=== PATIENT | female | born 1965 | race African-American/Black ===

== ENCOUNTER 2016-05-01 17:49 | Observation (INO) | payer OTHER ==
[~2016-05-01] VITALS: Ht 175.3 cm; Wt 90.7 kg
--- NOTE | ~2016-05-01 | H ---
[facility] [place] [address] HISTORY AND PHYSICAL Name: DEBRA REED Room #: 538-P [facility] M.RNura#: [id number] Admission: 05/01/16 Attend Phys: Jimenez Mccullough MD Discharge: Date of : 65 Report #: [id number] THIS REPORT FOR: //name// CC: Jimenez Stevenson ATTENDING PHYSICIAN: Jimenez Mccullough MD PRIMARY CARE PHYSICIAN: Mamadou Stevenson MD CHIEF COMPLAINT: Acute left leg and left buttock pain. HISTORY OF PRESENT ILLNESS: The patient is an 51-year-old female who has had problems with her lower back with left leg radiculopathy and neuropathy previously. She was here in November with back pain and evaluated with an MRI which did show some disc extrusion of L5-S1. She received epidural steroid shot at that time by pain management and she said she did well for a while. Normally she continues to have some left leg numbness and tingling. At some point since she was here, she got diagnosed with ankylosing spondylitis and she was evaluated by rheumatology, Dr. Lewis in the [place] and started on Humira last week. She just had her first dose. Since she had a jewelry box fall on her left ankle area tonight and it made her jump and since then she has been having increasing left buttock or sciatica pain and she continued to take her ibuprofen and tramadol at home but it did not help. She got to the point where she could not even ambulate because of the pain. She is having difficulty describing as the pain starts in her ankle where the jewelry box fell and radiate up her leg or starts in her left buttock area and radiates down her leg but she says the entire back of her leg is having shooting pain. PAST MEDICAL HISTORY: Chronic back pain, hypertension, asthma, depression, recent diagnosis of ankylosing spondylitis. PAST SURGICAL HISTORY: x 2, deviated septal repair, partial hysterectomy and sinus surgery. ALLERGIES: None. HOME MEDICATIONS: Hydrochlorothiazide 12.5 mg daily, ibuprofen 800 mg q.8 hours, tramadol 50 mg q.6 p.r.n., cyclobenzaprine 10 mg t.i.d., Zyrtec 10 mg daily, vitamin D 50,000 units weekly, vitamin B12 500 mg daily, 2 mg weekly. SOCIAL HISTORY: The patient denies any tobacco use. She drinks alcohol occasionally. She lives with her spouse and kids. She works in [employer]. FAMILY HISTORY: Her sister has MS and her [place] multiple [place] [address] HISTORY AND PHYSICAL Name: DORINDA BAEZADEBRA Room #: 538-P [facility] M.R.#: [id number] Admission: 05/01/16 Attend Phys: Jimenez Mccullough MD Discharge: Date of : 65 Report #: [id number] told she was in remission. REVIEW OF SYSTEMS: Twelve point review of systems was reviewed with the patient, otherwise negative unless stated in the HPI. PHYSICAL EXAMINATION: GENERAL: The patient is an alert female in no acute distress. VITAL SIGNS: Temperature is 36.6, heart rate 106, respirations 20, blood pressure is 142/82, oxygen 99% on room air. HEENT: PERRLA. Sclerae are nonicteric. Oral mucosa is pink and moist. NECK: Supple, no JVD noted. CARDIOVASCULAR: Normal S1, S2. No murmurs, rubs or gallops. RESPIRATORY: Breath sounds are clear bilaterally. No wheezing or rhonchi. Breathing is nonlabored. ABDOMEN: Soft, nontender, nondistended, positive bowel sounds. VASCULAR: No edema noted. Pedal pulses are 2+. NEUROLOGIC: The patient is alert and oriented x 3. Speech is clear. She is moving all extremities equally. No focal weakness noted. MUSCULOSKELETAL: She is able to bend her left leg at a 90 degree angle. She has difficulty performing straight leg raise on the left when she . She does have slight decreased sensation in the left leg. She does have point tenderness in her left-sided SI joint with some mild point tenderness in her lumbar area. LABS AND DIAGNOSTICS: Labs have not yet been drawn. ASSESSMENT AND PLAN: 1. Sciatica. The patient was admitted because she cannot ambulate. We will continue with scheduled Toradol and check an MRI of the lumbar spine in the morning. We will have physical therapy evaluate. She has never seen a surgeon regarding her back problems. If her MRI is abnormal, we may consult them. 2. Ankylosing spondylitis. 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 She may have involvement of her sacroiliac joint causing her current pain. Continue with antiinflammatory medications. We will also check her ESR and CRP. 3. Hypertension. Blood pressure is stable, continue home meds. 4. Deep venous thrombosis prophylaxis. Place sequential compression devices. We will continue to follow the patient closely throughout the hospitalization and make changes based on clinical status. <ELECTRONICALLY SIGNED> By: CHANDA Moreno 05/04/16 0658 [id number] CHANDA Moreno /nt
--- NOTE | ~2016-05-01 | HPC ---
[facility] [address] PAIN MANAGEMENT CONSULTATION Name: DEBRA REED Room #: 538-P [facility].Nura#: [id number] Admission: 05/01/16 Attend Phys: Jimenez Mccullough MD Discharge: Date of : 65 Report #: [id number] THIS REPORT FOR: //name// CC: Justice March DATE OF SERVICE: 05/04/2016 REFERRING PHYSICIAN: Justice Joshua DO CHIEF COMPLAINT: Low back pain, left lower extremity pain and paresthesias. HISTORY OF PRESENT ILLNESS: As you know, the patient is a 51-year-old female admitted to [facility] for low back pain, left lower extremity pain with paresthesias. The patient was admitted prior in November where she was found to have a L5-S1 disk extrusion with leftward distribution. She apparently underwent an epidural injection under fluoroscopic guidance, which "lasted for a while." The patient typically has left lower extremity pain and numbness. She apparently was involved in an incident with a jewelry box. Apparently, she was standing next to the jewelry box, accidentally caught a hold of it, it fell onto her leg exacerbating her symptoms. She has been admitted to the hospital for this suspected lumbar radiculopathy. We have been consented to provide the patient with possible epidural injection. PAST MEDICAL HISTORY: 1. Chronic low back pain. 2. Morbid obesity. 3. Hypertension. 4. Asthma. 5. Depression. 6. Diagnosis of ankylosing spondylitis. PAST SURGICAL HISTORY: section times 2, deviated septum repair, partial hysterectomy, and sinus surgery. SOCIAL HISTORY: The patient denies tobacco. She drinks alcohol occasionally. She is unaccompanied at today's visit. REVIEW OF SYSTEMS: Positive for low back pain, left lower extremity pain and paresthesias, hypertension, asthma, depression, chronic axial back pain. All other review of systems negative per 12-point review of systems other than those listed in history of present illness. ALLERGIES: None. [facility] [address] [place] [address] PAIN MANAGEMENT CONSULTATION Name: DORINDA BAEZADEBRA Room #: 538-P [facility] M.R.#: [id number] Admission: 05/01/16 Attend Phys: Jimenez Mccullough MD Discharge: Date of : 65 Report #: [id number] CURRENT MEDICATIONS: Hydrochlorothiazide 12.5 mg once a day, ibuprofen 800 mg 3 times a day, tramadol 50 mg every 6 hours p.r.n., cyclobenzaprine 10 mg 3 times a day, Zyrtec 10 mg once a day, pzewcsydniul39,000 units per week, vitamin B12 500 mg once a day. IMAGING: MRI of lumbar spine obtained on 05/03/2016 shows L1-L2 unremarkable, L2-L3 unremarkable, L3-L4 unremarkable, L4-L5 unremarkable, L5-S1 large left paracentral caudal disk extrusion with extruded disk fragment measuring 11 mm x 11 mm x 14 mm, this is below the superior endplate of S1, extruded disk fragment has significant mass effect upon and posteriorly displaces the central left S2 nerve root. Fragment approaches the central left S1 nerve root within the lateral recess. PHYSICAL EXAMINATION: GENERAL: Well-developed, well-nourished, well-hydrated morbidly obese 51-year-old female appearing her stated age. She is placing pain score today 10/10. HEENT: Normocephalic, atraumatic. Pupils equal, round, reactive to light. Extraocular muscles are intact. Sclerae nonicteric without injection. NEUROLOGIC: Cranial nerves 2-12 grossly intact. Speech is fluent. The patient deemed a good historian. LUNGS: Clear. No wheezing, rhonchi or rales. CARDIOVASCULAR: Regular. No appreciable gallop or rub. ABDOMEN: Soft, obese, nontender, nondistended, normal active bowel sounds. EXTREMITIES: Show no clubbing, no cyanosis, no edema. MUSCULOSKELETAL: Seated straight leg raising positive, supine straight leg raising positive. Fabere's test negative. Modified gaenslen is positive for axial low back pain. Gait is antalgic favoring left lower extremity over right. Muscle bulk and tone equal and symmetrical in lower extremities. ASSESSMENT: 1. Symptomatic lumbar radiculopathy. 2. Displacement of lumbar intervertebral disk with radiculopathy. 3. Chronic intractable pain. PLAN: 1. The patient has been admitted to [facility] for low back pain, left lower extremity pain exacerbated with an incident with a jewelry box that landed on her left leg. She states that her pain intensified at that point. She denies any other injury or trauma that may have led to symptoms. MRI findings do show a left paracentral disk protrusion at the L5-S1 level, this appears to be the source of the patient's symptoms. Ultimately, the patient may need surgical repair of the area, but at this time, they are hoping that a conservative treatment would be beneficial. The patient has been referred to our clinic to trial epidural injection under fluoroscopic guidance to determine if her symptoms would be amenable. [address] [address] PAIN MANAGEMENT CONSULTATION Name: DEBRA REED [id number] Admission: 05/01/16 Attend Phys: Jimenez Mccullough MD Discharge: Date of : 65 Report #: [id number] The patient was advised the risks and benefits of a lumbar epidural injection. These risks include but are not necessarily limited to bleeding, bruising, infection, worsening pain, no relief of pain, also risk of temporary or permanent muscle weakness, temporary or permanent nerve damage, possible paralysis and . The patient states understood and wished to proceed. 2. No medication changes were made at today's visit, the patient is to continue current medical therapy as previously prescribed. 3. The patient should follow up with neurosurgery as quickly as possible. This large extruded disk fragment will likely cause continued pain, I would recommend the patient see neurosurgery for a surgical consultation at minimum and possible planning for a decompressive surgery, alleviating the pain that she is experiencing by removing the extruded disk. We will defer to the primary team for referrals to neurosurgery. 4. We wish to thank you for the opportunity to see the patient in consultation here at [facility]. We are hopeful the epidural injection provided today will benefit the patient further. PROCEDURE NOTE DESCRIPTION OF PROCEDURE: L5-S1 left paramedian epidural steroid injection under fluoroscopic guidance. After obtaining written consent, the patient was taken back to fluoroscopy suite, placed in prone position with pillow under abdomen to decrease lumbar lordosis. Skin overlying lumbosacral area prepped and draped in aseptic fashion. The lumbar intervertebral spaces were identified by AP fluoroscopy. Skin and subcutaneous tissue overlying the target site of injection was anesthetized with 3 mL of 1% lidocaine. A 20-gauge 4-1/2 inch Tuohy needle advanced under fluoroscopic guidance towards the epidural space using a left paramedian approach. Epidural space identified using loss of resistance to air technique. After negative aspiration for heme or cerebrospinal fluid, 1 mL of Omnipaque was injected. A lumbar epidurogram was confirmed using both AP and lateral fluoroscopy. After negative aspiration for heme or cerebrospinal fluid, 5 mL of a solution containing 2 mL 40 mg per mL, 80 mg total triamcinolone, 3 mL lidocaine 1% was injected slowly. Needle retracted approximately half way, needle tract flushed 3 mL 1% lidocaine. Needle then removed. Sterile bandage placed over injection site. No new motor deficits present in lower extremity following the procedure. The patient tolerated the procedure well, carefully [place] [address] PAIN MANAGEMENT CONSULTATION Name: DORINDA BAEZADEBRA Room #: 538-P [facility] Jakob#: [id number] Admission: 05/01/16 Attend Phys: Jimenez Mccullough MD Discharge: Date of : 65 Report #: [id number] stable condition. No apparent complications. After meeting discharge criteria, the patient discharged home. By: [id number] Justice Abbasi DO /nt
[~2016-05-01 17:49] MED LIST: AUGMENTIN 875875 MG PO; DARVOCET-N 1001 EACH PO; FLEXERIL PO; FLONASE 0.05%50 MCG NASAL; FOLIC ACID1 MG PO; HYDROCHLOROTH12.5 MG PO; HYDROCODONE-AC120 ML PO; IBUPROFEN 200200 M1 PO; IBUPROFEN 800800 M1 PO; NORCO 5-325 TA1 EACH PO; ORTHO TRI-CYCL1 EAC1 PO; TOBREX5 ML OP; TRAMADOL 50 MG50 MG PO; VITAMIN B12 PO; VITAMIN D 5050000 I1 PO; ZPAK PO; ZYRTEC10 M5 PO
[2016-05-01 17:50] VITALS: BP 142/82
[2016-05-01 20:55] VITALS: BP 108/64
[2016-05-01 21:33] VITALS: BP 140/80
[2016-05-02 03:37] LABS: HEMATOCRIT 37.6 % (37.0-47.0); HEMOGLOBIN 12.6 gm/dL (12.0-15.0); MCH 28.5 pg (26.0-34.0); MCHC 33.6 g/dL (28.0-37.0); MCV 84.8 fL (80.0-100.0); RBC 4.44 mil/uL (4.20-5.00); WBC 6.7 thou/uL (4.0-11.0)
[2016-05-02 03:58] LABS: CALCIUM 9.5 mg/dL (8.5-10.1); POTASSIUM 3.2 mmol/L (3.5-5.1)
[2016-05-02 07:45] VITALS: BP 121/64
[2016-05-02 20:03] VITALS: BP 124/69
[2016-05-03 05:30] VITALS: BP 112/72
[2016-05-03 07:45] VITALS: BP 118/66
[2016-05-03 15:31] VITALS: BP 117/75
[2016-05-04 06:30] LABS: CREATININE 0.8 mg/dL (0.6-1.3); MAGNESIUM 1.6 mg/dL (1.8-2.4); POTASSIUM 3.5 mmol/L (3.5-5.1); TOTAL BILIRUBIN 0.2 mg/dL (<0.1-1.0)
[2016-05-04 07:54] VITALS: BP 104/62
[2016-05-04 17:19] VITALS: BP 142/76
[2016-05-04 20:00] VITALS: BP 136/81
[2016-05-05 04:00] VITALS: BP 131/62
[2016-05-05 10:16] VITALS: BP 124/65
[2016-05-05 15:29] VITALS: BP 146/81
[2016-05-05] MEDS ORDERED: LYRICA 75 MG CA75 MG PO (15:53)
[2016-05-05] MEDS ORDERED: PERCOCET PO (15:53)
[2016-05-05 16:11] VITALS: BP 146/81
== END 2016-05-05 16:52 | disposition home or self-care (01) ==
LOC: ER 17:49 → 5S 20:19 → EROBS 20:19 → 5S 20:55
PROVIDERS: Nurse Practitioner; Nurse Practitioner Acute Care
DX: M54.41 Lumbago with sciatica, right side (principal); M54.42 Lumbago with sciatica, left side; G89.29 Other chronic pain; I10 Essential (primary) hypertension; J45.909 Unspecified asthma, uncomplicated; F32.9 Major depressive disorder, single episode, unspecified; K64.5 Perianal venous thrombosis; E66.01 Morbid (severe) obesity due to excess calories; R13.0 Aphagia